=== PATIENT | female | born 1970 | race Caucasian/White ===

== ENCOUNTER → 2018-05-23 | Outpatient (CLI) | payer OTHER ==
[2018-05-25 15:09] LABS: HPV 16 Negative (Negative); HPV 18 Negative (Negative); HPV OTHER HR TYPES Negative (Negative)
== END | disposition home or self-care (01) ==
LOC: LAB 16:55 → LAB SHORT 16:55
PROVIDERS: Obstetrics & Gynecology Gynecology
DX: Z12.4 Encounter for screening for malignant neoplasm of cervix (principal); N89.8 Other specified noninflammatory disorders of vagina
CPT/HCPCS: 87070; 87205; 87624; G0123

== ENCOUNTER → 2018-06-07 | Outpatient (CLI) | payer OTHER | LOC: LAB SHORT 15:00 → LAB 15:00 | DX: R79.89 Other specified abnormal findings of blood chemistry (principal) | CPT/HCPCS: 84443 ==

== ENCOUNTER → 2019-01-16 | Outpatient (CLI) | payer OTHER | END | disposition home or self-care (01) | LOC: LAB 18:14 → LAB SHORT 18:14 | DX: L90.0 Lichen sclerosus et atrophicus (principal); N89.8 Other specified noninflammatory disorders of vagina | CPT/HCPCS: 87070; 87205 ==

== ENCOUNTER → 2019-04-17 | Outpatient (CLI) | payer OTHER | END | disposition home or self-care (01) | LOC: LAB 16:45 → LAB SHORT 16:45 | DX: L90.0 Lichen sclerosus et atrophicus (principal) | CPT/HCPCS: 87070; 87205 ==

== ENCOUNTER → 2019-06-06 | Outpatient (CLI) | payer OTHER | END | disposition home or self-care (01) | LOC: PLD 07:19 → LAB SHORT 07:19 | DX: D22.4 Melanocytic nevi of scalp and neck (principal); L57.0 Actinic keratosis | CPT/HCPCS: 88305 ==

== ENCOUNTER → 2019-06-11 | Outpatient (CLI) | payer OTHER ==
[2019-06-13 15:07] LABS: HPV 16 Negative (Negative); HPV 18 Negative (Negative); HPV OTHER HR TYPES Negative (Negative)
== END | disposition home or self-care (01) ==
LOC: LAB 19:19 → LAB SHORT 19:19
PROVIDERS: Obstetrics & Gynecology Gynecology
DX: Z12.4 Encounter for screening for malignant neoplasm of cervix (principal)
CPT/HCPCS: 87624; G0123

== ENCOUNTER 2024-02-23 09:00 | Day surgery (SDC) | payer BC ==
[~2024-02-23] VITALS: Ht 177.8 cm; Wt 81.7 kg
[~2024-02-23 09:00] MED LIST: Lactated Ringer's 1,000 ML IV ONE; propofoL 50 ML IV ONE
[2024-02-23] MEDS ORDERED: TRAZ100 (09:22)
[2024-02-23] MEDS ORDERED: ONE DAILY MUL400 MCG (09:22)
[2024-02-23] MEDS ORDERED: ZYRTEC10 M2 (09:22)
[2024-02-23] MEDS ORDERED: Celexa20 MG (09:22)
[2024-02-23] MEDS ORDERED: IRON FOLATE PL1 EACH (09:23)
[2024-02-23] MEDS ORDERED: BUPROPION HCL200 M2 (09:23)
[2024-02-23] MEDS ORDERED: CELECOXIB200 MG (09:24)
[2024-02-23] MEDS ORDERED: OMEP20ER (09:24)
[2024-02-23] MEDS ORDERED: Norvasc10 MG (09:24)
[2024-02-23] MEDS ORDERED: EUTHYROX50 MCG (09:24)
[2024-02-23] MEDS ORDERED: PROG100 (09:25)
[2024-02-23] MEDS ORDERED: LIOT5 (09:25)
[2024-02-23] MEDS ORDERED: CLIMARA1 EACH (09:25)
[2024-02-23] MEDS ORDERED: Lactated Ringer's 1,000 ML IV ONE (09:46)
[2024-02-23 10:55] VITALS: BP 124/94
== END 2024-02-23 10:59 | disposition home or self-care (01) ==
LOC: ORSCSDS 09:00
PROVIDERS: Internal Medicine Gastroenterology
PROC: 0DBP8ZX Excision of Rectum, Via Natural or Artificial Opening Endoscopic, Diagnostic (ICD-10-PCS; principal; 2024-02-23 10:15)
DX: Z12.11 Encounter for screening for malignant neoplasm of colon (principal); D12.8 Benign neoplasm of rectum; Z80.0 Family history of malignant neoplasm of digestive organs; E03.9 Hypothyroidism, unspecified; E05.00 Thyrotoxicosis with diffuse goiter without thyrotoxic crisis or storm; Z79.899 Other long term (current) drug therapy
CPT/HCPCS: 88305; J2704; J7120